=== PATIENT | male | born 1955 | race Caucasian/White ===

== ENCOUNTER 2024-03-29 12:00 | Emergency (ER) | payer MEDICARE, BC ==
[~2024-03-29] VITALS: Ht 172.7 cm; Wt 90.7 kg
[2024-03-29 12:23] LABS: BASOPHILS % 0.5 % (0.0-1.0); EOSINOPHILS # (AUTO) 0.1 (0.0-0.4); EOSINOPHILS % 2.1 % (0.0-6.0); HEMATOCRIT 42.3 % (38.2-49.6); HEMOGLOBIN 13.1 g/dL (14.0-18.0); LYMPHOCYTES # (AUTO) 1.3 (1.0-3.2); LYMPHOCYTES % 22.6 % (18.0-39.1); MEAN CORPUSCULAR HEMOGLOBIN 29.4 pg (28-32); MEAN CORPUSCULAR VOLUME 94.8 fL (81-99); MONOCYTES # (AUTO) 0.5 (0.2-0.8); MONOCYTES % 7.8 % (4.4-11.3); NEUTROPHILS # (AUTO) 3.9 (2.1-6.9); NEUTROPHILS % 66.7 % (38.7-80.0); PLATELET COUNT 174 x10e3/uL (140-360); RED BLOOD COUNT 4.46 x10e6/uL (4.3-5.7); RED CELL DISTRIBUTION WIDTH 15.6 % (11.7-14.4); WHITE BLOOD COUNT 5.79 x10e3/uL (4.8-10.8)
[2024-03-29 12:33] LABS: INR 0.93; PROTHROMBIN TIME 12.9 seconds (11.9-14.5)
[2024-03-29 12:34] LABS: PARTIAL THROMBOPLASTIN TIME 30.2 seconds (23.8-35.5)
[2024-03-29 12:41] LABS: ALBUMIN 2.8 g/dL (3.5-5.0); ALBUMIN/GLOBULIN RATIO 0.8 (0.8-2.0); ANION GAP 15.8 mmol/L (8-16); BILIRUBIN,TOTAL 0.3 mg/dL (0.2-1.2); CALCIUM 8.6 mg/dL (8.4-10.2); CREATININE, SERUM 1.52 mg/dL (0.72-1.25); MAGNESIUM 2.1 MG/DL (1.3-2.1); TOTAL PROTEIN 6.1 g/dL (6.5-8.1)
[2024-03-29 12:47] LABS: TROPONIN I 0.019 ng/mL (0-0.300)
[2024-03-29 13:01] LABS: POTASSIUM 5.8 mmol/L (3.5-5.1)
[2024-03-29 13:30] VITALS: PULSE 60; RESP 16; TEMP 98
[2024-03-29] MEDS: FUROSEMIDE INJ 10 MG/ML 4 ML VIAL IV ONE (13:31)
[2024-03-29] MEDS: SODIUM CHLORIDE 0.9% 500ML 500 ML IV ONE (13:32)
[2024-03-29 14:24] VITALS: BP 138/78; PULSE 78; RESP 20; TEMP 98.5; O2SAT 100
[2024-03-29] MEDS: SOD POLYSTYRENE SULFONATE SUSP 15 GM/60 ML BTL PO ONE (14:38)
== END 2024-03-29 14:50 | disposition home or self-care (01) ==
LOC: ER 12:04
DX: E87.5 Hyperkalemia (principal); I12.9 Hypertensive chronic kidney disease with stage 1 through stage 4 chronic kidney disease, or unspecified chronic kidney disease; E11.22 Type 2 diabetes mellitus with diabetic chronic kidney disease; E11.65 Type 2 diabetes mellitus with hyperglycemia; N18.9 Chronic kidney disease, unspecified; R94.31 Abnormal electrocardiogram [ECG] [EKG]
CPT/HCPCS: 36415; 80053; 83735; 84484; 85025; 85610; 85730; 93005; 99283; J1940; J7040

== ENCOUNTER 2024-07-20 11:09 | Emergency (ER) | payer MEDICARE, BC ==
[~2024-07-20] VITALS: Ht 172.7 cm; Wt 90.7 kg
[2024-07-20 11:51] LABS: BASOPHILS % 0.3 % (0.0-1.0); EOSINOPHILS # (AUTO) 0.2 (0.0-0.4); EOSINOPHILS % 1.8 % (0.0-6.0); HEMATOCRIT 48.8 % (38.2-49.6); HEMOGLOBIN 15.8 g/dL (14.0-18.0); LYMPHOCYTES # (AUTO) 1.3 (1.0-3.2); MEAN CORPUSCULAR HEMOGLOBIN 27.8 pg (28-32); MEAN CORPUSCULAR HGB CONC 32.4 g/dL (31-35); MEAN CORPUSCULAR VOLUME 85.8 fL (81-99); MONOCYTES # (AUTO) 0.5 (0.2-0.8); MONOCYTES % 5.4 % (4.4-11.3); NEUTROPHILS # (AUTO) 7.3 (2.1-6.9); NEUTROPHILS % 78.2 % (38.7-80.0); PLATELET COUNT 201 x10e3/uL (140-360); RED BLOOD COUNT 5.69 x10e6/uL (4.3-5.7); WHITE BLOOD COUNT 9.31 x10e3/uL (4.8-10.8)
[2024-07-20 12:03] VITALS: TEMP 98.1
[2024-07-20 12:12] LABS: ALBUMIN 3.3 g/dL (3.5-5.0); ALBUMIN/GLOBULIN RATIO 0.9 (0.8-2.0); ANION GAP 17.3 mmol/L (8-16); BILIRUBIN,TOTAL 0.2 mg/dL (0.2-1.2); CALCIUM 9.6 mg/dL (8.4-10.2); CREATININE, SERUM 1.14 mg/dL (0.72-1.25); TOTAL PROTEIN 7.1 g/dL (6.5-8.1)
[2024-07-20 12:18] LABS: TROPONIN I 0.014 ng/mL (0-0.300)
[2024-07-20 12:24] LABS: POTASSIUM 5.3 mmol/L (3.5-5.1)
[2024-07-20] MEDS ORDERED: IOPAMIDOL 370 MG/ML 100 ML INFUS..BTL INJ ONE (12:30)
[2024-07-20 13:46] VITALS: PULSE 79; RESP 16; O2SAT 99
[2024-07-20] MEDS ORDERED: SENNA LAXATIVE8.6 MG PO (14:19)
== END 2024-07-20 14:31 | disposition home or self-care (01) ==
LOC: ER 11:38
DX: R10.30 Lower abdominal pain, unspecified (principal); K59.00 Constipation, unspecified; I12.9 Hypertensive chronic kidney disease with stage 1 through stage 4 chronic kidney disease, or unspecified chronic kidney disease; E11.22 Type 2 diabetes mellitus with diabetic chronic kidney disease; E11.65 Type 2 diabetes mellitus with hyperglycemia; N18.9 Chronic kidney disease, unspecified; M54.9 Dorsalgia, unspecified; G89.29 Other chronic pain; Z95.810 Presence of automatic (implantable) cardiac defibrillator; Z95.4 Presence of other heart-valve replacement; Z89.512 Acquired absence of left leg below knee; Z89.511 Acquired absence of right leg below knee
CPT/HCPCS: 36415; 74177; 80053; 82550; 84484; 85025; 93005; 99284; Q9967

== ENCOUNTER 2024-12-06 09:54 | Emergency (ER) | payer MEDICARE, BC ==
[~2024-12-06] VITALS: Ht 172.7 cm; Wt 90.7 kg
[~2024-12-06 09:54] MED LIST: SENNA LAXATIVE8.6 MG PO
[2024-12-06 10:00] VITALS: TEMP 97.9
[2024-12-06] MEDS ORDERED: LIDOCAINE 2%/ EPINEPHRINE 20ML MDV ONE (10:33)
[2024-12-06 11:04] LABS: BASOPHILS % 0.4 % (0.0-1.0); EOSINOPHILS # (AUTO) 0.4 (0.0-0.4); EOSINOPHILS % 3.5 % (0.0-6.0); HEMATOCRIT 28.2 % (38.2-49.6); HEMOGLOBIN 8.8 g/dL (14.0-18.0); LYMPHOCYTES # (AUTO) 1.8 (1.0-3.2); LYMPHOCYTES % 16.8 % (18.0-39.1); MEAN CORPUSCULAR HEMOGLOBIN 27.3 pg (28-32); MEAN CORPUSCULAR HGB CONC 31.2 g/dL (31-35); MEAN CORPUSCULAR VOLUME 87.6 fL (81-99); MONOCYTES # (AUTO) 1.2 (0.2-0.8); MONOCYTES % 11.5 % (4.4-11.3); NEUTROPHILS # (AUTO) 7.2 (2.1-6.9); NEUTROPHILS % 67.1 % (38.7-80.0); PLATELET COUNT 251 x10e3/uL (140-360); RED BLOOD COUNT 3.22 x10e6/uL (4.3-5.7); WHITE BLOOD COUNT 10.68 x10e3/uL (4.8-10.8)
[2024-12-06] MEDS: SODIUM CHLORIDE 0.9% 1000ML 1,000 ML IV ONE (11:36)
[2024-12-06] MEDS: TETANUS/DIPHTHERIA TOX ADULT 0.5 ML SYR IM ONE (11:36)
[2024-12-06 13:26] LABS: BASOPHILS # (AUTO) 0.1 (0.0-0.1); BASOPHILS % 0.4 % (0.0-1.0); EOSINOPHILS # (AUTO) 0.3 (0.0-0.4); HEMATOCRIT 27.4 % (38.2-49.6); HEMOGLOBIN 8.5 g/dL (14.0-18.0); LYMPHOCYTES # (AUTO) 1.4 (1.0-3.2); LYMPHOCYTES % 11.2 % (18.0-39.1); MEAN CORPUSCULAR HEMOGLOBIN 27.4 pg (28-32); MEAN CORPUSCULAR VOLUME 88.4 fL (81-99); MONOCYTES # (AUTO) 0.9 (0.2-0.8); MONOCYTES % 7.7 % (4.4-11.3); NEUTROPHILS # (AUTO) 9.5 (2.1-6.9); PLATELET COUNT 232 x10e3/uL (140-360); WHITE BLOOD COUNT 12.22 x10e3/uL (4.8-10.8)
[2024-12-06 13:30] VITALS: PULSE 80; RESP 12; O2SAT 98
== END 2024-12-06 13:50 | disposition home or self-care (01) ==
LOC: ER 10:20
DX: S81.011A Laceration without foreign body, right knee, initial encounter (principal); W25.XXXA Contact with sharp glass, initial encounter; Y92.89 Other specified places as the place of occurrence of the external cause; I12.9 Hypertensive chronic kidney disease with stage 1 through stage 4 chronic kidney disease, or unspecified chronic kidney disease; E11.22 Type 2 diabetes mellitus with diabetic chronic kidney disease; N18.9 Chronic kidney disease, unspecified; I25.10 Atherosclerotic heart disease of native coronary artery without angina pectoris; M54.9 Dorsalgia, unspecified; G89.29 Other chronic pain; Z95.4 Presence of other heart-valve replacement
CPT/HCPCS: 12001; 36415; 73560; 85025; 90471; 90714; 99284; J2004; J7030

== ENCOUNTER 2024-12-24 12:42 | Emergency (ER) | payer MEDICARE, BC | END 2024-12-24 14:15 | disposition short-term general hospital (02) | LOC: ER 13:25 | DX: Z48.02 Encounter for removal of sutures (principal) ==

== ENCOUNTER 2025-02-23 08:45 | Inpatient (IN) | payer MEDICARE, BC ==
[~2025-02-23] VITALS: Ht 172.7 cm; Wt 90.7 kg
[2025-02-23 08:47] VITALS: TEMP 97.9
[2025-02-23 09:26] LABS: BASOPHILS % 0.4 % (0.0-1.0); EOSINOPHILS % 1.8 % (0.0-6.0); LYMPHOCYTES % 11.0 % (18.0-39.1); MONOCYTES % 9.3 % (4.4-11.3); NEUTROPHILS % 77.1 % (38.7-80.0); RED CELL DISTRIBUTION WIDTH 17.8 % (11.7-14.4)
[2025-02-23 10:04] LABS: EST GLOMERULAR FILTRATION RATE 46.0 ML/MIN (>=60)
[2025-02-23] MEDS: ASPIRIN 325 MG TAB PO ONE (10:30)
[2025-02-23] MEDS ORDERED: CLOPIDOGREL BISULFATE 75 MG TAB ONE (11:47)
[2025-02-23] MEDS: CLOPIDOGREL BISULFATE 75 MG TAB PO ONE (12:02)
[2025-02-23] MEDS: ASPIRIN 81 MG CHEW TAB PO ONE (12:36)
[2025-02-23] MEDS ORDERED: HYDRALAZINE HCL 20 MG/ML VIAL IV PRN (14:00)
[2025-02-23 16:30] VITALS: PULSE 79; RESP 13; O2SAT 100
== END 2025-02-23 17:23 | disposition short-term general hospital (02) | DRG 280 ==
LOC: ER 08:56 → ERHOLD 10:25
PROVIDERS: ADMIT Internal Medicine; ATTEND Internal Medicine
DX: I21.4 Non-ST elevation (NSTEMI) myocardial infarction (principal); I50.23 Acute on chronic systolic (congestive) heart failure; I13.0 Hypertensive heart and chronic kidney disease with heart failure and stage 1 through stage 4 chronic kidney disease, or unspecified chronic kidney disease; E11.22 Type 2 diabetes mellitus with diabetic chronic kidney disease; N18.9 Chronic kidney disease, unspecified; I25.10 Atherosclerotic heart disease of native coronary artery without angina pectoris; Z95.5 Presence of coronary angioplasty implant and graft; I35.0 Nonrheumatic aortic (valve) stenosis; K59.00 Constipation, unspecified; M54.9 Dorsalgia, unspecified; G89.29 Other chronic pain; Z89.512 Acquired absence of left leg below knee; Z95.0 Presence of cardiac pacemaker; Z95.2 Presence of prosthetic heart valve
CPT/HCPCS: 36415; 71045; 74176; 80053; 82550; 83690; 84484; 85025; 93005; 93306; 99284